=== PATIENT | female | born 1995 | race Two or more races ===

== ENCOUNTER 2016-07-24 13:13 | Emergency (ER) | payer OTHER ==
[~2016-07-24] VITALS: Ht 170.2 cm; Wt 102.1 kg
[~2016-07-24 13:13] MED LIST: KEFLEX500 MG PO; MOTRIN800 MG PO; NAPROXEN500 MG PO; PERCOCET 5/31 TABLET PO; PRENATAL TABLE1 EAC3 PO
[2016-07-24 14:13] LABS: HEMATOCRIT 38.9 % (36.0-46.0); MCH 27.3 PG (29.0-34.0); MCHC 34.4 G/DL (30.0-36.0); MCV 79.2 FL (83-99); MEAN PLAT.VOLUME 10.4 uM^3 (9.5-12.4); PLATELET COUNT 344 K/uL (156-360); RBC DIS.WIDTH-CV 14.1 % (11.8-14.6); RBC DIS.WIDTH-SD 39.5 % (39-53); RED BLOOD COUNT 4.91 M/uL (3.80-5.20); WHITE BLOOD COUNT 18.1 K/uL (4.1-10.2)
[2016-07-24 14:25] LABS: CHLORIDE 106 mEq/L (99-109); SODIUM 137 mEq/L (136-147)
[2016-07-24 14:27] LABS: GLUCOSE 93 mg/dL (70-99)
[2016-07-24 14:28] LABS: ANION GAP 10 MEQ/L (2-14)
[2016-07-24 14:31] LABS: GFR ESTIMATE (CALCULATED) > 59 mL/min/; UREA NITROGEN (BUN) 6 mg/dL (9-23)
[2016-07-24 17:17] LABS: LIPASE 24 U/L (1.0-51.0); QUANTITATIVE HCG 82599.5 MIU/ML
[2016-07-24] MEDS ORDERED: ZOFRAN4 MG PO (19:53)
[2016-07-24 20:20] VITALS: BP 119/69
== END 2016-07-24 20:14 | disposition home or self-care (01) ==
LOC: EME 13:13
DX: O26.891 Other specified pregnancy related conditions, first trimester (principal); R55 Syncope and collapse; E86.0 Dehydration; O21.0 Mild hyperemesis gravidarum
CPT/HCPCS: 70450; 76801; 80048; 83690; 84702; 85027; 86850; 86900; 86901; 87210; 93005; 99281; 99285; J2405; J7030

== ENCOUNTER 2016-12-23 18:23 | Outpatient (CLI) | payer OTHER ==
[~2016-12-23 18:23] MED LIST changes: +ZOFRAN4 MG PO
[2016-12-23 18:51] VITALS: BP 126/72
[2016-12-23 21:52] LABS: AMPHETAMINES QUANT VALUE 0 NG/ML; BARBITUATES QUANT VALUE 0 NG/ML; BENZODIAZEPINES QUANT VALUE 0 NG/ML; BENZODIAZEPINES, URINE SCREEN Negative (200 ng/mL); MARIJUANA QUANT VALUE 0 NG/ML; OPIATES QUANTITATIVE VALUE 0 NG/ML; PHENCYCLIDINE QUANT VALUE 0 NG/ML
[2016-12-26 12:08] LABS: CHLAMYDIA TRACHOMATIS NEGATIVE; NEISSERIA GONORRHOEAE NEGATIVE
== END 2016-12-23 20:50 | disposition home or self-care (01) ==
LOC: LDRP-OP 18:23 → 2WEST 18:24 → LDRP-OP 04-13 13:28
PROVIDERS: Nurse Practitioner
DX: O46.93 Antepartum hemorrhage, unspecified, third trimester (principal); Z3A.28 28 weeks gestation of pregnancy
CPT/HCPCS: 59025; 80306 90; 87086; 87491; 87591; G0378

== ENCOUNTER 2017-01-09 23:00 | Emergency (ER) | payer OTHER ==
[~2017-01-09] VITALS: Ht 167.6 cm; Wt 100.2 kg
[2017-01-10] MEDS ORDERED: ZOFRAN4 MG PO (00:21)
[2017-01-10 00:36] VITALS: BP 112/93
== END 2017-01-10 00:36 | disposition home or self-care (01) ==
LOC: EME 23:00
DX: O21.2 Late vomiting of pregnancy (principal); R19.7 Diarrhea, unspecified; Z3A.30 30 weeks gestation of pregnancy
CPT/HCPCS: 81003; 99281; 99284; J2405; J7030

== ENCOUNTER 2017-02-05 23:02 | Emergency (ER) | payer OTHER ==
[~2017-02-05] VITALS: Ht 167.6 cm; Wt 98.1 kg
[2017-02-06 00:43] LABS: EOSINOPHIL (%) 0.6 % (0-5); EOSINOPHIL COUNT 0.1 K/uL (0-0.3); HEMATOCRIT 29.9 % (36.0-46.0); IMMATURE GRANULOCYTE (%) 1.6 % (0.0-0.7); IMMATURE GRANULOCYTE COUNT 0.2 K/uL; INSTRUMENT ABS NEUTROPHIL CT 8.8 K/uL; LYMPHOCYTE COUNT 2.7 K/uL (1.0-2.8); MCH 23.5 PG (29.0-34.0); MCHC 31.8 G/DL (30.0-36.0); MCV 73.8 FL (83-99); MEAN PLAT.VOLUME 10.5 uM^3 (9.5-12.4); MONOCYTE (%) 6.2 % (3-12); MONOCYTE COUNT 0.8 K/uL (0-0.8); NEUTROPHIL (%) 69.7 % (45-76); NEUTROPHIL COUNT 8.8 K/uL (1.8-6.4); PLATELET COUNT 359 K/uL (156-360); RBC DIS.WIDTH-CV 13.8 % (11.8-14.6); RBC DIS.WIDTH-SD 36.8 % (39-53); RED BLOOD COUNT 4.05 M/uL (3.80-5.20); WHITE BLOOD COUNT 12.6 K/uL (4.1-10.2)
[2017-02-06 00:47] LABS: CHLORIDE 105 mEq/L (99-109); POTASSIUM 3.6 mEq/L (3.7-5.4); SODIUM 134 mEq/L (136-147)
[2017-02-06 00:49] LABS: GLUCOSE 88 mg/dL (70-99)
[2017-02-06 00:50] LABS: ANION GAP 8 MEQ/L (2-14)
[2017-02-06 00:51] LABS: TOTAL BILIRUBIN 0.6 mg/dL (0.0-1.0)
[2017-02-06 00:53] LABS: ALKALINE PHOSPHATASE 193 IU/L (3-129); GFR ESTIMATE (CALCULATED) > 59 mL/min/
[2017-02-06 00:54] LABS: UREA NITROGEN (BUN) 7 mg/dL (9-23)
[2017-02-06] MEDS ORDERED: SERTRALINE HCL50 MG PO (00:58)
[2017-02-06] MEDS ORDERED: PEPCID20 MG PO (01:07)
[2017-02-06] MEDS ORDERED: ATARAX,VISTARIL50 MG PO (01:07)
[2017-02-06 01:23] VITALS: BP 112/72
[2017-02-07] MEDS ORDERED: FEOSOL325 MG PO (19:49)
[2017-02-07] MEDS ORDERED: URSODIOL300 MG PO (19:49)
== END 2017-02-06 01:23 | disposition home or self-care (01) ==
LOC: EXP 23:02 → EME 23:02 → EXP 02-06 01:23
PROVIDERS: Physician Assistant
DX: L29.9 Pruritus, unspecified (principal); R74.0 Nonspecific elevation of levels of transaminase and lactic acid dehydrogenase [LDH]
CPT/HCPCS: 80053; 85025; 99281; 99283; Q0177

== ENCOUNTER 2017-02-07 15:34 | Outpatient (CLI) | payer OTHER ==
[~2017-02-07] VITALS: Ht 167.6 cm; Wt 96.6 kg
[~2017-02-07 15:34] MED LIST changes: +ATARAX,VISTARIL50 MG PO; +PEPCID20 MG PO; +SERTRALINE HCL50 MG PO
[2017-02-07 15:44] VITALS: BP 131/76
[2017-02-07 17:00] VITALS: BP 114/72
[2017-02-07 18:42] VITALS: BP 132/74
[2017-02-07 19:08] LABS: PROTHROMBIN TIME 11.3 SEC (10.2-12.9)
[2017-02-07 19:09] LABS: EOSINOPHIL (%) 0.5 % (0-5); EOSINOPHIL COUNT 0.1 K/uL (0-0.3); HEMATOCRIT 30.9 % (36.0-46.0); IMMATURE GRANULOCYTE (%) 1.6 % (0.0-0.7); IMMATURE GRANULOCYTE COUNT 0.3 K/uL; INSTRUMENT ABS NEUTROPHIL CT 11.6 K/uL; LYMPHOCYTE COUNT 2.5 K/uL (1.0-2.8); MCH 22.9 PG (29.0-34.0); MCHC 31.1 G/DL (30.0-36.0); MCV 73.6 FL (83-99); MEAN PLAT.VOLUME 10.3 uM^3 (9.5-12.4); MONOCYTE (%) 5.1 % (3-12); MONOCYTE COUNT 0.8 K/uL (0-0.8); NEUTROPHIL (%) 75.9 % (45-76); NEUTROPHIL COUNT 11.6 K/uL (1.8-6.4); NRBC (%) 0.1 /100 WBC (0-0); PLATELET COUNT 356 K/uL (156-360); RBC DIS.WIDTH-SD 37.2 % (39-53); WHITE BLOOD COUNT 15.3 K/uL (4.1-10.2)
[2017-02-07 19:12] LABS: ANION GAP 11 MEQ/L (2-14); CHLORIDE 105 MEQ/L (99-109); POTASSIUM 4.1 MEQ/L (3.7-5.4); SAMPLE HEMOLYSIS CHECK 0; SAMPLE ICTERIC CHECK 0; SAMPLE LIPEMIA CHECK 0; SODIUM 137 MEQ/L (136-147); TOTAL BILIRUBIN 0.9 MG/DL (0.0-1.0)
[2017-02-07 19:17] LABS: ALKALINE PHOSPHATASE 205 IU/L (3-129); GFR ESTIMATE (CALCULATED) > 59 mL/min/; GLUCOSE 75 mg/dL (70-99); LACTATE DEHYDROGENASE 183 IU/L (20-246); UREA NITROGEN (BUN) 7 mg/dL (9-23); URIC ACID 2.2 mg/dL (3.1-9.2)
[2017-02-07 19:26] LABS: ADD MIUA? YES; BILIRUBIN NEGATIVE; BLOOD NEGATIVE; COLOR AMBER ((YELLOW)); GLUCOSE (STRIP) NEGATIVE; KETONES 80; LEUKOCYTES MODERATE; NITRITE NEGATIVE; PROTEIN (STRIP) 30; SPECIFIC GRAVITY 1.029 (1.000-1.030)
[2017-02-07 19:43] VITALS: BP 112/59
[2017-02-07] MEDS ORDERED: URSODIOL300 MG PO (19:49)
[2017-02-07] MEDS ORDERED: FEOSOL325 MG PO (19:49)
[2017-02-07 20:35] LABS: BACTERIA 2+ /HPF; EPITHELIAL CELLS 2+ /HPF; MUCUS 3+ /LPF; RED BLOOD CELLS RARE /HPF (0-5); UCUL ADDED? YES
[2017-02-07 20:36] LABS: AMORPHOUS URATES CRYSTALS 1+; CASTS NONE SEEN /LPF; CRYSTALS PRESENT
== END 2017-02-07 21:40 | disposition home or self-care (01) ==
LOC: LDRP-OP → 2WEST 15:36 → LDRP-OP 04-13 21:38
PROVIDERS: Obstetrics & Gynecology
DX: O26.613 Liver and biliary tract disorders in pregnancy, third trimester (principal); K83.1 Obstruction of bile duct; O26.893 Other specified pregnancy related conditions, third trimester; R79.89 Other specified abnormal findings of blood chemistry; O34.219 Maternal care for unspecified type scar from previous cesarean delivery; Z3A.35 35 weeks gestation of pregnancy
CPT/HCPCS: 59025; 80053; 81003; 82239 90; 83615; 84550; 85025; 85610; 87086; G0378

== ENCOUNTER 2017-02-21 09:17 | Inpatient (IN) | payer OTHER ==
[~2017-02-21] VITALS: Ht 170.2 cm; Wt 96.8 kg
[~2017-02-21 09:17] MED LIST changes: +FEOSOL325 MG PO; +URSODIOL300 MG PO
[2017-02-21 11:46] VITALS: BP 126/88
[2017-02-21] MEDS ORDERED: ENDOCET 5-3251 EACH PO (15:35)
[2017-02-21] MEDS ORDERED: IBUPROFEN800 MG PO (15:35)
[2017-02-21 17:39] VITALS: BP 131/58
[2017-02-21 18:25] VITALS: BP 116/56
[2017-02-21 19:45] VITALS: BP 123/64
[2017-02-21 20:37] VITALS: BP 130/72
[2017-02-22] VITALS (7 sets, daily range): BP systolic 101–130; BP diastolic 48–81
[2017-02-22 06:34] LABS: EOSINOPHIL (%) 0.2 % (0-5); HEMATOCRIT 23.7 % (36.0-46.0); IMMATURE GRANULOCYTE (%) 1.2 % (0.0-0.7); IMMATURE GRANULOCYTE COUNT 0.2 K/uL; INSTRUMENT ABS NEUTROPHIL CT 12.4 K/uL; LYMPHOCYTE COUNT 2.5 K/uL (1.0-2.8); MCH 22.7 PG (29.0-34.0); MCHC 30.8 G/DL (30.0-36.0); MCV 73.8 FL (83-99); MEAN PLAT.VOLUME 10.3 uM^3 (9.5-12.4); MONOCYTE (%) 5.3 % (3-12); MONOCYTE COUNT 0.9 K/uL (0-0.8); NEUTROPHIL (%) 77.5 % (45-76); NEUTROPHIL COUNT 12.4 K/uL (1.8-6.4); PLATELET COUNT 301 K/uL (156-360); RBC DIS.WIDTH-CV 14.5 % (11.8-14.6); RBC DIS.WIDTH-SD 38.5 % (39-53)
[2017-02-22 06:39] LABS: RED BLOOD COUNT 3.21 M/uL (3.80-5.20)
[2017-02-23 02:21] VITALS: BP 115/69
[2017-02-23 07:53] VITALS: BP 105/63
[2017-02-23 11:30] VITALS: BP 106/62
[2017-02-23 13:39] LABS: EOSINOPHIL (%) 0.4 % (0-5); EOSINOPHIL COUNT 0.1 K/uL (0-0.3); HEMATOCRIT 26.2 % (36.0-46.0); IMMATURE GRANULOCYTE (%) 1.5 % (0.0-0.7); IMMATURE GRANULOCYTE COUNT 0.2 K/uL; INSTRUMENT ABS NEUTROPHIL CT 11.4 K/uL; LYMPHOCYTE COUNT 2.6 K/uL (1.0-2.8); MCH 22.6 PG (29.0-34.0); MCHC 30.2 G/DL (30.0-36.0); MCV 75.1 FL (83-99); MEAN PLAT.VOLUME 10.3 uM^3 (9.5-12.4); MONOCYTE (%) 5.3 % (3-12); MONOCYTE COUNT 0.8 K/uL (0-0.8); NEUTROPHIL (%) 75.4 % (45-76); NEUTROPHIL COUNT 11.4 K/uL (1.8-6.4); NRBC (%) 0.1 /100 WBC (0-0); PLATELET COUNT 364 K/uL (156-360); RBC DIS.WIDTH-CV 14.9 % (11.8-14.6); RBC DIS.WIDTH-SD 39.5 % (39-53); RED BLOOD COUNT 3.49 M/uL (3.80-5.20); WHITE BLOOD COUNT 15.1 K/uL (4.1-10.2)
== END 2017-02-23 18:40 | disposition home or self-care (01) | DRG 765 ==
LOC: 2SOUTH → 2WEST 10:59 → 2SOUTH 13:39 → 2WEST 02-23 18:40
PROVIDERS: Midwife; Obstetrics & Gynecology
PROC: 10D00Z1 Extraction of Products of Conception, Low, Open Approach (ICD-10-PCS; principal; 2017-02-21)
DX: O26.62 Liver and biliary tract disorders in childbirth (principal); K83.1 Obstruction of bile duct; E66.9 Obesity, unspecified; D62 Acute posthemorrhagic anemia; Z3A.37 37 weeks gestation of pregnancy; Z37.0 Single live birth; O34.211 Maternal care for low transverse scar from previous cesarean delivery; N85.8 Other specified noninflammatory disorders of uterus; O99.214 Obesity complicating childbirth; Z68.35 Body mass index [BMI] 35.0-35.9, adult; O99.02 Anemia complicating childbirth; O62.2 Other uterine inertia
CPT/HCPCS: 36415; 80053; 85025; 85610; 85730; 86850; 86900; 86901; 88305; J0690; J2210; J2274; J2405; J2765; J7120